=== PATIENT | male | born 1955 | race Caucasian/White ===

== ENCOUNTER → 2023-06-24 07:49 | Outpatient (REF) | payer OTHER, SELFPAY | LOC: DHCBC/DCA 07:49 | PROVIDERS: ATTENDING PHYSICIAN Internal Medicine Cardiovascular Disease; FAMILY PHYSICIAN Internal Medicine | DX: R07.9 Chest pain, unspecified (principal) | CPT/HCPCS: 78452; 93017; A9500 ==

== ENCOUNTER → 2023-06-29 14:09 | Outpatient (REF) | payer OTHER, SELFPAY | LOC: RCS 14:09 | PROVIDERS: ATTENDING PHYSICIAN Internal Medicine Cardiovascular Disease; FAMILY PHYSICIAN Internal Medicine | DX: R07.9 Chest pain, unspecified (principal) | CPT/HCPCS: 93306 ==

== ENCOUNTER → 2023-08-18 09:34 | Outpatient (REF) | payer OTHER, SELFPAY | LOC: RAD 09:34 | PROVIDERS: ATTENDING PHYSICIAN Internal Medicine Cardiovascular Disease; FAMILY PHYSICIAN Internal Medicine | DX: I10 Essential (primary) hypertension (principal); R07.9 Chest pain, unspecified | CPT/HCPCS: 75574; Q9967 ==

== ENCOUNTER 2023-11-23 21:57 | Inpatient (IN) | payer OTHER, SELFPAY ==
[2023-11-23 17:42] VITALS: BP 159/88
[2023-11-23 18:57] VITALS: BMI 24.4
[2023-11-23] MEDS: NSS 1000 IV ×2 (19:01→23:46)
[2023-11-23 19:08] VITALS: BP 162/72
[2023-11-23 19:12] LABS: % Basophils 0.2 % (0-2); % Immature Granulocytes 0.6 % (0-0.5); % Lymphocytes 6.3 % (20.5-51.1); % Monocytes 7.8 % (1.7-9.3); % Neutrophils 85.1 % (42.2-75.2); Absolute Basophils 0.1 10^3/uL (0-0.2); Absolute Immature Granulocytes 0.1 10^3/uL (0-0.05); Absolute Lymphocytes 1.4 10^3/uL (1.2-3.4); Absolute Monocytes 1.7 10^3/uL (0.1-0.6); Absolute Neutrophils 19.1 10^3/uL (1.4-6.5); Hematocrit 36.9 % (39.0-52.0); Hemoglobin 13.6 g/dL (13.0-18.0); Mean Corp Hgb Conc. 36.9 g/dL (33.0-37.0); Mean Corpuscular Hgb 30.8 pg (27.0-31.0); Mean Corpuscular Volume 83.7 fL (80.0-94.0); Mean Platelet Volume 9.4 fL (7.4-10.4); Nucleated Red Blood Cells % 0 % (-); Platelet Count 236 10^3/uL (130-400); Red Blood Cell Count 4.41 10^6/uL (4.70-6.10); Red Cell Dist. Width 12.3 % (11.5-14.5); White Blood Cell Count 22.4 10^3/uL (4.8-10.8)
[2023-11-23 19:27] LABS: ALT (SGPT) 20 U/L (0-50); AST (SGOT) 18 U/L (17-59); Albumin 4.4 g/dl (3.5-5.0); Alkaline Phosphatase 123 U/L (38-126); Blood Urea Nitrogen 26 mg/dl (9-20); Calcium 9.4 mg/dl (8.4-10.2); Carbon Dioxide 23 mmol/L (22-30); Chloride 99 mmol/L (98-107); Estimated Creatinine Clearance 45 ml/min; Glucose 147 mg/dl (70-99); Sodium 134 mmol/L (135-145); Total Bilirubin 0.7 mg/dl (0.2-1.3); Total Protein 6.9 g/dl (6.3-8.2); eGFR 46.35
[2023-11-23 19:39] LABS: Troponin I < 0.012 ng/ml
[2023-11-23 20:10] LABS: Urine Albumin Trace (Neg - Trace); Urine Bilirubin Negative (Negative); Urine Character Clear (Clear); Urine Color Yellow; Urine Glucose 3+ (Negative); Urine Ketone Negative (Negative); Urine Leukocyte Trace (Negative); Urine Nitrite Negative (Negative); Urine Occult Blood Trace (Negative); Urine Specific Gravity 1.005 (<1.030); Urine Urobilinogen Negative (Neg - 1+); Urine pH 6.5 (5.0-9.0)
[2023-11-23] MEDS: TYLENOL 1000 MG PO (20:15)
[2023-11-23 20:18] LABS: Urine Red Blood Cell 0-2 /HPF (0-2)
[2023-11-23 20:24] LABS: COVID-19 Antigen Negative (Negative)
--- NOTE | 2023-11-23 21:12 | HPS.HSE ---
Family Physician
-
Family Physician: Kranthi Chapman
Chief Complaint
-
Fever, chills, decreased urine stream, hypertension
History of Present Illness
68-year-old male from home with a 4-day history of fever, chills, urinary frequency, dysuria and difficulty with urinary stream. His states he does have history of a renal calculi but she is unsure when this was diagnosed. Patient denies any
hematuria, sediment in urine, abdominal pain, flank pain, nausea, vomiting, diarrhea, chest pain, palpitations, short breath, cough. He has past medical history hypertension, hyperlipidemia, DM 2.
Medical History
Past Medical History
Past Medical History: Reports Other
Additional Past Medical History:
hypertension
hyperlipidemia
DM 2
Past Surgical History: Reports Other
Additional Past Surgical History:
Tonsillectomy
Ureteral stricture repair as child
Social History
Tobacco: Non-smoker
Alcohol: None
Drug: None
Personal:
Living: With Family
Employment: Employed (Part-time at [employer])
Family History
Family History: Other (Mother cancer Father cardiac from/dementia)
Allergies / Home Medications
Allergies reflects when Allergies were last updated in [employer].
Home Medications with original date entered in [employer]
Allergy/Medication List:
Allergies
Allergy/AdvReac Type Severity Reaction Status Date / Time
No Known Allergies Allergy Verified 03/28/17 20:02
Home Medications
acetaminophen 500 mg tablet (Tylenol Extra Strength) 1,000 mg PO QIDPRN PRN mild pain 11/23/23
amlodipine 10 mg tablet (Norvasc) 10 mg PO DAILY 11/23/23
aspirin 81 mg tablet,delayed release 81 mg PO DAILY 11/23/23
atorvastatin 10 mg tablet (Lipitor) 10 mg PO DAILY 11/23/23
carvedilol 3.125 mg tablet (Coreg) 3.125 mg PO BID 11/23/23
dapagliflozin propanediol 10 mg tablet (Farxiga) 10 mg PO DAILY 11/23/23
glimepiride 2 mg tablet 2 mg PO DAILY 11/23/23
metformin 1,000 mg tablet 1,000 mg PO BID 11/23/23
Review of Systems
-
History Source: Patient and Family ( at bedside)
A 12 point ROS was completed and negative except as noted: Yes
Constitutional: Reports Fever and Chills
EENT: Denies Sore Throat or Runny Nose
Respiratory: Denies Cough or Trouble Breathing
Cardiac: Denies Chest Pain, Diaphoresis, Palpitations or Syncope
Abdomen/GI: Denies Abdominal Pain, Nausea, Vomiting, Diarrhea, Constipated, Bloody Stools or Black Stools
: Reports Dysuria, Frequency, Difficulty Voiding and Urgency; Denies Flank Pain, Incontinence, Bleeding, Dark Urine or Discharge
Musculoskeletal: Denies Joint Pain or Edema
Skin: Denies Itching or Rash
Neurological: Denies Dizzy, Headache or Weakness
Endocrine: Reports No Symptoms
Hematologic/Lymphatic: Reports No Symptoms
Psych: Reports Calm
Physical Exam
Vital Signs
Vital Signs
Temp Pulse Resp BP Pulse Ox
102.9 F H 111 15 159/88 97
11/23/23 17:42 11/23/23 17:42 11/23/23 17:42 11/23/23 17:42 11/23/23 19:28
Physical Exam
General: Comfortable, Conversant and Chills
HEENT: NormoCephalic, Anicteric, Moist mucous membranes, PERRLA, Pavo Conjunctivae and No Ptosis
Respiratory: Clear; No Wheezes, Rales or Rhonchi
Cardiac: S1/S2 and Tachycardia; No Murmur, Rub, Gallop or Peripheral Edema
Breast: Deferred by me
GI: Soft, Non Tender, Non Distended, Normal Bowel Sounds and No Hepatosplenomegaly
Rectal: Deferred by Provider
Genito-urinary: Deferred by me
Musculoskeletal: No Clubbing, No Cyanosis and No Edema
Skin: Warm and Dry; No Rash or Jaundice
Neuro: AO x 3, No Motor Deficits, Nonfocal/grossly intact, Cranial Nerves Intact and No Sensory Deficits; No Slurred Speech, Facial Droop, Tremors or Sedated
Psych: Calm
Laboratory Results
-
11/23/23 18:59
11/23/23 18:59
Laboratory Results
Total Bilirubin 0.7 mg/dl (0.2-1.3) 11/23/23 18:59
AST 18 U/L (17-59) 11/23/23 18:59
ALT 20 U/L (0-50) 11/23/23 18:59
Alkaline Phosphatase 123 U/L (38-126) 11/23/23 18:59
Troponin I < 0.012 ng/ml 11/23/23 18:59
Data Reviewed
-
Lab Data: Labs Reviewed by me
Impression/Plan
-
Impression/plan:
Admit to telemetry
#Sepsis 2/2 Acute prostatitis poss pyelo
Symptoms of dysuria, frequency, decreased stream, fever, chills 4 days
-WBC 22.4 with left shift, 102.9F, HR 111
COVID-negative
-Blood culture x 2, check lactic acid
UA negative, CXR negative
-IV vancomycin IV Zosyn
-IV Rocephin
-IV NSS 1 L given in ER
-Tylenol as needed fever
-Check CT abdomen pelvis
CXR: Mildly decreased bilateral lung volumes. Mild scarring subsegmental atelectasis left lower lobe no evidence of pneumonia
#CALEB multifactorial volume depletion/medication
Creat 1.6/bun 26(prior creat 1.1 in 2009)
1 L NSS given in ER continue IV NSS 100 cc an hour
-Follow BMP
-Hold metformin 1000 mg twice daily
#DM2
Accu-Cheks with SSI, check HgbA1c
-Hold metformin 1000 g twice daily due to CALEB
-HOld glimepiride 2 mg daily
#HTN�benign
BP 159/88
-Continue Coreg 3.125 mg twice daily, Norvasc 10 mg daily
2D echo 06/29/2023: EF 65 to 70% no wall abnormalities. Mild MR, mild TR
#HLD
-Continue Lipitor 10 mg daily
DVT prophylaxis
Subcu Lovenox
Full code
--- NOTE | 2023-11-23 21:35 | W.PN.UPDATE ---
Update Note
Progress Note Update
This is an addendum to the H&P written by DIONY Garcia on 11/23/2023.
68-year-old male past medical history of nephrolithiasis, urethral stricture in childhood, hypertension, diabetes, CKD 3, hyperlipidemia, presenting with weakness, fever/chills, decreased urine stream for the past 4 days.
Patient febrile, tachycardic and clearly septic. Labs show CALEB with creatinine 1.6, leukocytosis of 22. Urinalysis not highly convincing for urinary tract infection and shows 6-10 WBC, trace leukocyte esterase however history is concerning for
potential obstructive ureteral calculus. IV fluids, check blood cultures, urine culture, ceftriaxone. Check CT abdomen pelvis.
--- NOTE | 2023-11-23 21:38 | ED.GENMED ---
History of Present Illness
General
Chief Complaint: Blood Pressure Problem
Source: patient and spouse
Exam Limitations: none
Time Seen by Provider: 11/23/23 18:18
Nursing documentation reviewed up to this point in time: agreed with
History of Present Illness
History of Present Illness:
Patient to ED with complaint of fever/chill, x 2-3 days. Elevated BP and HR at home Taking tylenol with temporary improvement of fever. Report intermittent chest pain. NO cough or difficulty breathig. Reports urinary frequency, denies back or
abdominal pain. No n/v/d. Spouse states he appears weak to her. Not eating or drinking. Brought to ED by spouse for eval
Past History
Past History
ED Past Medical History: HTN, NIDDM and Other (Hypertension )
ED Past Surgical History: None
Social History
Tobacco: Non-smoker
Alcohol: None
Family History
Family History: Other (Mother with colon cancer )
Review of Systems
Review of Systems
Allergies reviewed?: Yes
All Other Systems: ROS reviewed and negative except as documented in HPI and ROS
Constitutional: Reports fever, fatigue and chills
EENT: Reports no symptoms
Respiratory: Reports no symptoms
Cardiac: Reports chest pain
ABD/GI: Reports no symptoms
: Reports frequency
Musculoskeletal: Reports no symptoms
Skin: Reports no symptoms
Neurological: Reports weakness
Psychiatric: Reports no symptoms
Phy Exam
General Physical Exam
General Presentation: mild distress
General age: appears stated age
General Skin: warm and dry
General Habitus: normal
General Mental: alert
Cardiovascular Exam
Cardiovascular Exam: regular rate/rhythm and no edema
Pulmonary Exam
Pulmonary Exam: lungs clear and no respiratory distress
Gastrointestinal Exam
Gastrointestinal Exam: normal bowel sounds, non tender, soft, no organomegaly, non distended and no cva tenderness
Musculoskeletal Exam
Musculoskeletal Exam: full ROM and neuro vasc intact
Skin Exam
Skin Exam: normal color, warm/dry and no rash
Psychiatric Exam
Psychiatric Exam: normal mood/affect
Course
Orders/Labs/Results
Orders:
Orders
11/23/23 17:41
EKG [Electrocardiogram (*1)] Urgent
Reason for Study: Tachycardia
EKG- Treatment ONCE
11/23/23 18:29
CR Chest - 2 Views Urgent
Comment:
Reason For Exam: fever, chest pain
11/23/23 18:30
0.9% Sodium Chloride 1000 ml [Nss] 1,000 ml IV BOLUS
11/23/23 18:59
Complete Blood Count/With Diff Urgent
Comprehensive Metabolic Panel Urgent
Troponin I Urgent
Blood Culture Q30M
MADDISON Source: Blood/Venous
Specimen Description:
Blood Culture Q30M
MADDISON Source: Blood/Venous
Specimen Description:
11/23/23 19:44
Acetaminophen [Tylenol] 1,000 mg PO NOW STA
11/23/23 19:59
COVID-19 Antigen Urgent
Source: Nasal Swab
Urinalysis Reflex To Culture Urgent
Date Specimen was Collected: 11/23/23
Time Specimen was Collected: 19:08
Urine Microscopic Reflex Cult Urgent
Influenza A+B Rapid Molecular Urgent
MADDISON Source: Nasal Swab
Specimen Description:
11/23/23 21:00
Piperacillin/Tazo 4.5 Gram [Zosyn] 4.5 gram in 100 ml IV NOW
Vancomycin [Vancocin] 1,500 mg 0.9% Sodium Chloride [Nss] 20 ml 0.9% Sodium Chloride 250 ml [Nss] 250 ml IV NOW
11/23/23 21:32
Abdomen/Pelvis wo Contrast CT [CT Abd/pelvis Wo Iv Cont] Urgent
Comment:
Reason For Exam: sepsis concern for obst renal calculi
11/23/23 21:34
Admit/Transfer Patient As Directed
Co-Sign Provider:
Level of Care: Inpatient admission
Assign to:: Telemetry
Physician / Group: andrews nunez
Diagnosis: sepsis likely 2/2 to renal calculi
Reason for Telemetry: Arrhythmia
Date to Stop Telemetry: 11/26/23
Time to Stop Telemetry: 11:00
Reason for Hospitalization: sepsis likely 2/2 to renal calculi
Expected length of stay greater than two midnights?: Yes
ELOS- Estimated Length of Stay in days: 5
I certify the patient meets the requirements for IP care: Yes
Code Status As Directed
Resuscitation Status: Full Code
11/23/23 21:45
0.9% Sodium Chloride 1000 ml [Nss] 1,000 ml IV 100 mls/hr
11/23/23 23:06
Acetaminophen [Tylenol] 650 mg PO Q4HPRN PRN
Dextrose 50%-Water [Dextrose 50% Syringe] 12.5 grams IV [id number] PRN
Glucagon [GlucaGen] 1 mg IM PRN PRN
11/23/23 23:06
Activity As Directed
Activity Level: As Tolerated
Bedside Glucose Monitoring As Directed
Frequency: AC&HS
Additional Instructions:: Change to q6h if pt on TPN, tube feeding or not eating
Intake/ Output As Directed
Frequency: Per unit guidelines
Vital Signs As Directed
Frequency: Per unit guidelines
Ot Eval And Treat Routine
Pt Eval And Treat Routine
Activity Level: As Tolerated
DX Deep Vein Thrombosis Video Routine
11/24/23 06:00
Complete Blood Count/With Diff IN AM
Comprehensive Metabolic Panel IN AM
Glycohemoglobin (HgbA1c) IN AM
11/24/23 07:30
Insulin Aspart Corrective Low [Novolog Flexpen-Low Resistance] See Protocol SC AC
11/24/23 08:00
Amlodipine [Norvasc] 10 mg PO DAILY
Aspirin Low Dose EC [Aspir Low (Enteric Coated)] 81 mg PO DAILY
Atorvastatin [Lipitor] 10 mg PO DAILY
Carvedilol [Coreg] 3.125 mg PO BID
11/24/23 18:00
Enoxaparin Sodium [Lovenox] 40 mg SC QPM
11/25/23 06:00
Complete Blood Count/With Diff IN AM
Comprehensive Metabolic Panel IN AM
11/26/23 06:00
Complete Blood Count/With Diff IN AM
Comprehensive Metabolic Panel IN AM
11/26/23 11:00
DC Protocol for Telemetry ONCE
Abnormal Lab Results
11/23/23 11/23/23
18:59 19:59
WBC 22.4 H 10^3/uL
(4.8-10.8)
RBC 4.41 L 10^6/uL
(4.70-6.10)
Hct 36.9 L %
(39.0-52.0)
Abs Immat Gran (auto) 0.1 H 10^3/uL
(0-0.05)
Absolute Neuts (auto) 19.1 H 10^3/uL
(1.4-6.5)
Absolute Monos (auto) 1.7 H 10^3/uL
(0.1-0.6)
Immature Gran % 0.6 H %
(0-0.5)
Neutrophils % 85.1 H %
(42.2-75.2)
Lymphocytes % 6.3 L %
(20.5-51.1)
Sodium 134 L mmol/L
(135-145)
BUN 26 H mg/dl
(9-20)
Creatinine 1.6 H mg/dL
(0.7-1.3)
Glucose 147 H mg/dl
(70-99)
Ur Occult Blood Reflex Trace A
(Negative)
Leukocyte Esterase Rfl Trace A
(Negative)
Urine Glucose 3+ A
(Negative)
11/23/23 18:59
11/23/23 18:59
Vital Signs
Initial and Last Documented VS:
Initial Vital Signs
Temp Pulse Resp BP Pulse Ox
102.9 F H 111 15 159/88 95
11/23/23 17:42 11/23/23 17:42 11/23/23 17:42 11/23/23 17:42 11/23/23 17:42
Last Documented Vital Signs
Temp Pulse Resp BP Pulse Ox
102.9 F H 81 18 125/70 92
11/23/23 17:42 11/23/23 22:30 11/23/23 22:30 11/23/23 22:29 11/23/23 22:30
*Radiology
Radiology exam reviewed: radiology read reviewed
*Pulse Oximetry
Patient hypoxic: no
*Critical Care Note
Total Time (30-74mins, 75-104mins- exclusive of procedures): Not Applicable
Update Note
Update Note:
Patien to ED with complaint of fever/chills, fatigue x 2 days. Increasing weakness. Labs reviewed. WBC 22.4. Blood cultures pending GIven IVF, tylenol, antibiotics started. Discussed findings and plan with patient. He is agreeable to
admission. He then reports at one time he was told he had a small kidney stone. Denies any issues wtih stones in the past. UA with trace blood, trace leukocytes creat 1.6. WIll CT to r/o hydro, obstruction
ED Attending Note
-
Portions of this chart may have been created with voice recognition software.� Occasional wrong word or��sound alike� substitutions may have occurred due to the inherent limitations of voice recognition software.
Discharge Plan
Departure
Patient Disposition: Admit
Date of Disposition: 11/23/23
Time of Disposition: 21:00
Presentation/result/management discussed w/ accepting MD/DO: Hospitalist
Patient with high blood pressure during this ER visit?: No
Condition: Fair
Covid-19: Not Applicable
Discharge Problem:
Sepsis
Interventions
Interventions:
*Risk Screen - Suicide Last Done: 11/23/23 17:42
*General Assessment Last Done: 11/23/23 17:42
*Neglect/Abuse Screening Last Done: 11/23/23 17:42
*ED COVID-19 Vaccine History Last Done: 11/23/23 18:57
*Nursing Disposition Last Done: 11/23/23 23:07
ED- Cardiac Assessment Last Done: 11/23/23 19:28
ED- Neurological Assessment Last Done: 11/23/23 19:28
ED- Pulmonary Assessment Last Done: 11/23/23 19:28
Discharge Date and Time
Discharge Date/Time: 11/23/23 23:08
[2023-11-23] MEDS: ZOSYN 100 IV (22:22)
[2023-11-23 22:29] VITALS: BP 125/70
[2023-11-23 23:20] LABS: Glucose - Point of Care 217 mg/dl (70-99)
[2023-11-23 23:21] VITALS: BP 124/63; BMI 24.3
[2023-11-23] MEDS: STERILE WATER FOR INJECTION 10 ML IV (23:51)
[2023-11-23] MEDS: ROCEPHIN 1000 MG IV (23:51)
[2023-11-24] VITALS (8 sets, daily range): BP systolic 122–146; BP diastolic 61–71; PULSE 78–80; O2SAT 94
--- NOTE | 2023-11-24 00:56 | PTCARENOTE ---
Patient arrived from ED, was able to walk independently to bathroom to void. Denies pain, remains on RA. Afebrile at this time.
[2023-11-24 08:03] LABS: Glucose - Point of Care 141 mg/dl (70-99)
[2023-11-24] MEDS: NOVOLOG FLEXPEN-LOW RESISTANCE SC ×2 (08:19→17:44)
[2023-11-24 08:26] LABS: % Basophils 0.2 % (0-2); % Eosinophils 0.1 % (0-6); % Immature Granulocytes 0.5 % (0-0.5); % Lymphocytes 7.6 % (20.5-51.1); % Neutrophils 83.6 % (42.2-75.2); Absolute Immature Granulocytes 0.1 10^3/uL (0-0.05); Absolute Lymphocytes 1.5 10^3/uL (1.2-3.4); Absolute Monocytes 1.6 10^3/uL (0.1-0.6); Hematocrit 35.1 % (39.0-52.0); Hemoglobin 12.6 g/dL (13.0-18.0); Mean Corp Hgb Conc. 35.9 g/dL (33.0-37.0); Mean Corpuscular Hgb 30.4 pg (27.0-31.0); Mean Corpuscular Volume 84.6 fL (80.0-94.0); Nucleated Red Blood Cells % 0 % (-); Platelet Count 246 10^3/uL (130-400); Red Blood Cell Count 4.15 10^6/uL (4.70-6.10); Red Cell Dist. Width 12.4 % (11.5-14.5); White Blood Cell Count 20.4 10^3/uL (4.8-10.8)
[2023-11-24] MEDS: NSS 1000 IV ×2 (08:27→20:05)
[2023-11-24] MEDS: COREG 3.125 MG PO ×2 (08:27→20:04)
[2023-11-24] MEDS: ASPIR LOW (ENTERIC COATED) 81 MG PO (08:27)
[2023-11-24] MEDS: NORVASC 10 MG PO (08:28)
[2023-11-24] MEDS: LIPITOR 10 MG PO (08:28)
[2023-11-24 08:54] LABS: ALT (SGPT) 16 U/L (0-50); AST (SGOT) 19 U/L (17-59); Albumin 3.6 g/dl (3.5-5.0); Alkaline Phosphatase 120 U/L (38-126); Blood Urea Nitrogen 22 mg/dl (9-20); Calcium 8.8 mg/dl (8.4-10.2); Carbon Dioxide 22 mmol/L (22-30); Chloride 105 mmol/L (98-107); Estimated Creatinine Clearance 48 ml/min; Glucose 135 mg/dl (70-99); Sodium 138 mmol/L (135-145); Total Bilirubin 0.7 mg/dl (0.2-1.3); eGFR 50.08
[2023-11-24 11:09] LABS: Glycohemoglobin (HgbA1c) 7.1 % (4.0-5.6)
[2023-11-24 11:41] LABS: Glucose - Point of Care 267 mg/dl (70-99)
--- NOTE | 2023-11-24 12:10 | W.PN.HOSP.TC ---
Today's Communication/Plan
-
Antibiotics for acute prostatitis
Do not do any catheterization or any urinary catheters unless you ask urologist first
Assessment / Plan
Assessment / Plan
Physical Exam
General: Not in acute distress
HEENT: Normocephalic
Respiratory: Clear to Auscultation Bilaterally
Cardiac: S1/S2 and RRR
GI: Soft, Non Tender, Non Distended, Normal Bowel Sounds
Musculoskeletal: No Cyanosis and No Edema
Skin: Warm and Dry
Neuro: AAO x 3, Nonfocal/grossly intact, Cranial Nerves Intact and No Sensory Deficits
Psych: Calm

CT Abd/pelvis Wo Iv Cont, as per radiologist's report
IMPRESSION:
1. Severely enlarged prostate gland with mild surrounding fat stranding suggesting benign prostatic hyperplasia (BPH) and acute prostatitis.
2. Mild diffuse urinary bladder wall thickening which could be secondary to acute cystitis or chronic urinary bladder outlet obstruction.
3. Mild to moderate chronic bilateral renal disease and small hemorrhagic cysts in both kidneys. Moderate perinephric fat stranding around the kidneys which could be secondary to chronic renal disease or acute pyelonephritis. No CT evidence for
ureteral calculus or hydroureteronephrosis.
4. Moderate amount of fecal material throughout the colon suggesting constipation.
5. Small hiatal hernia.
6. 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

Assessment/Plan
#Sepsis Secondary to Acute prostatitis and Possible Pyelonephritis
#Severely Enlarged prostate
#Fever
#Leukocytosis
-CT Abdomen Pelvis results as above
-Status post Vancomycin, Zosyn and Rocephin
-Now on Ciprofloxacin for acute prostatitis and possible pyelonephritis
-Follow urine culture
-Follow blood cultures
-Urology consulted, recommendations appreciated
#CALEB Likely Secondary Obstruction with Severely Enlarged Prostate, and sepsis
-Follow BMP
-Hold metformin 1000 mg twice daily
#Type 2 Diabetes Mellitus
Accu-Cheks with SSI, check HgbA1c
-Hold metformin 1000 g twice daily due to CALEB
-HOld glimepiride 2 mg daily
#HTN�benign
BP 159/88
-Continue Coreg 3.125 mg twice daily, Norvasc 10 mg daily
2D echo 06/29/2023: EF 65 to 70% no wall abnormalities. Mild MR, mild TR
#HLD
-Continue Lipitor 10 mg daily
DVT prophylaxis
Subcu Lovenox
Full code
Anticipated Discharge: > 48 hours
Subjective/Interval History
-
Date of Service: November 24, 2023
Patient was seen and examined. He reported ongoing urinary hesitancy and dribbling. No other new significant symptoms or complaints.
Objective Data
-
Labs:
Laboratory Results
11/24/23
07:54
WBC 20.4 H
Hgb 12.6 L
Hct 35.1 L
Plt Count 246
Sodium 138
Potassium 4.0
Chloride 105
Carbon Dioxide 22
BUN 22 H
Creatinine 1.5 H
Glucose 135 H
Calcium 8.8
Total Bilirubin 0.7
AST 19
ALT 16
Alkaline Phosphatase 120
Vital Signs:
Vital Signs
Temp Pulse Resp BP Pulse Ox
99.7 F 81 18 122/64 98
11/24/23 11:04 11/24/23 11:04 11/24/23 11:04 11/24/23 11:04 11/24/23 11:04
I&O
11/23/23 11/24/23 11/25/23
06:59 06:59 06:59
Intake Total 480 / 480
Balance 480 / 480
[2023-11-24] MEDS: FLOMAX 0.400000000000000022 MG PO (12:49)
--- NOTE | 2023-11-24 12:59 | CM ---
Patient seen with , initial assessment completed. Patient resides with in single story home, one step to enter. Patient is independent, denies use of DME, VN, or SNF history. Patient confirms PCP Kranthi Chapman, pharmacy [facility],
confirms prescription coverage. Patient denies housing/utility, food, or transportation insecurities. CM will continue to follow for all discharge planning needs.
Plan; home no needs likely.
[2023-11-24] MEDS: NOVOLOG FLEXPEN-LOW RESISTANCE 3 UNITS SC (13:16)
[2023-11-24] MEDS: FLUSH (NSS) 1 FLUSH IV (13:46)
[2023-11-24] MEDS: CIPRO 400 MG 200 IV (13:46)
[2023-11-24 16:42] LABS: Glucose - Point of Care 142 mg/dl (70-99)
--- NOTE | 2023-11-24 16:52 | PTCARENOTE ---
Pt AAO x3, Bhumi, ambulatory in room/to BR; noam well. VSS. Telemetry:NSR. On room air- pulse ox 97%. Abd soft, rounded, noam PO well. Voids frequently- small/mod amts clear yellow urine; pt c/o urgency/frequency; denies discomfort. IVF's NSS
@ 100 ml/hr infusing via Rt AC site without sx of infiltration. Resting in bed at present. Will continue to monitor.
[2023-11-24] MEDS: TYLENOL 650 MG PO (16:58)
[2023-11-24] MEDS: LOVENOX 40 MG SC (17:43)
[2023-11-24 21:48] LABS: Glucose - Point of Care 147 mg/dl (70-99)
--- NOTE | 2023-11-24 23:00 | CONS.URO ---
Consultation
-
Performing Provider: Felix
Reason for Consultation: Prostatitis
Medical History
History of Present Illness
68M admitted with 4-day history of fever, chills, urinary frequency, dysuria and difficulty voiding
Prior urologic history of stones and repair of a urethral stricture as a child
Patient denies any hematuria. Denies abdominal pain, flank pain, nausea, vomiting
At baseline he does not have significant BPH symptoms and has not had any episodes of prostatitis/UTI in the past
No prior episodes of urinary retention or gross hematuria
He was admitted with sepsis and started on broad spectum abx
CT scan showed enlarged prostate and cystitis/prostatitis
Past Medical History
Past Medical History: Other (ypertension, hyperlipidemia, DM 2)
Allergies/Home Medications
Allergies
Allergy/AdvReac Type Severity Reaction Status Date / Time
No Known Allergies Allergy Verified 03/28/17 20:02
Home Medications
�Medication �Instructions �Recorded �Confirmed �Type
acetaminophen 500 mg tablet 1,000 mg PO QIDPRN PRN mild pain 11/23/23 11/23/23 History
(Tylenol Extra Strength)
amlodipine 10 mg tablet (Norvasc) 10 mg PO DAILY Blood Pressure 11/23/23 11/23/23 History
aspirin 81 mg tablet,delayed 81 mg PO DAILY Blood Clot 11/23/23 11/23/23 History
release Prevention/Tx
atorvastatin 10 mg tablet (Lipitor) 10 mg PO DAILY High Cholesterol 11/23/23 11/23/23 History
carvedilol 3.125 mg tablet (Coreg) 3.125 mg PO BID Blood Pressure 11/23/23 11/23/23 History
dapagliflozin propanediol 10 mg 10 mg PO DAILY Diabetes 11/23/23 11/23/23 History
tablet (Farxiga)
glimepiride 2 mg tablet 2 mg PO DAILY Diabetes 11/23/23 11/23/23 History
metformin 1,000 mg tablet 1,000 mg PO BID Diabetes 11/23/23 11/23/23 History
Physical Exam
Vital Signs
Vital Signs
Temp Pulse Resp BP Pulse Ox
98.9 F 81 18 124/66 95
11/24/23 19:45 11/24/23 19:45 11/24/23 19:45 11/24/23 19:45 11/24/23 19:45
Lab / Testing Results
Laboratory Results
11/24/23 07:54
11/24/23 07:54
Assessment / Plan
-
Prostatitis
- Symptoms c/w acute prostatitis. Suspect this is dx despite relatively benign urinalysis
- Urine specimen from admission sent for culture
- Continue IV abx pending cultures - even if no growth would recommend continuing fluoroquinolone empirically for 14 day total course
- Mild urinary retention - 140cc PVR on 11/23. Would avoid lazo given possible hx of urethral stricture repaired in childhood. Patient reports steadily improving ability to void.
- Start tamsulosin 0.4mg daily and continue at discharge
BPH
- severely enlarged prostate, 100cc volume on CT, likely risk factor for prostatitis
- Minimal baseline BPH symptoms - will review again at follow up
Complex renal cysts
- Atypical appearance of larger R renal cyst - likely hyperdense/hemorrhagic cyst but cannot rule out solid mass on noncontrast CT
- Will discuss this further at follow up for additional diagnostic imaging
Data Reviewed
-
CT Scan: Image personally visualized and interpreted
Lab Data: Labs Reviewed
[2023-11-25] MEDS: STERILE WATER FOR INJECTION IV ×2 (00:50→23:12)
[2023-11-25] MEDS: CIPRO 400 MG 200 IV ×2 (01:18→13:51)
[2023-11-25] MEDS: TYLENOL 650 MG PO ×3 (01:22→21:18)
[2023-11-25 03:00] VITALS: BP 133/61
[2023-11-25 07:20] LABS: Glucose - Point of Care 141 mg/dl (70-99)
[2023-11-25 07:34] VITALS: BP 144/70
[2023-11-25 07:34] LABS: % Basophils 0.2 % (0-2); % Eosinophils 0.5 % (0-6); % Immature Granulocytes 0.5 % (0-0.5); % Lymphocytes 9.8 % (20.5-51.1); % Monocytes 8.8 % (1.7-9.3); % Neutrophils 80.2 % (42.2-75.2); Absolute Eosinophils 0.1 10^3/uL (0-0.7); Absolute Immature Granulocytes 0.1 10^3/uL (0-0.05); Absolute Lymphocytes 1.7 10^3/uL (1.2-3.4); Absolute Monocytes 1.5 10^3/uL (0.1-0.6); Absolute Neutrophils 13.7 10^3/uL (1.4-6.5); Hematocrit 34.8 % (39.0-52.0); Hemoglobin 12.5 g/dL (13.0-18.0); Mean Corp Hgb Conc. 35.9 g/dL (33.0-37.0); Mean Corpuscular Hgb 30.3 pg (27.0-31.0); Mean Corpuscular Volume 84.5 fL (80.0-94.0); Mean Platelet Volume 9.7 fL (7.4-10.4); Nucleated Red Blood Cells % 0 % (-); Platelet Count 248 10^3/uL (130-400); Red Blood Cell Count 4.12 10^6/uL (4.70-6.10); Red Cell Dist. Width 12.2 % (11.5-14.5); White Blood Cell Count 17.1 10^3/uL (4.8-10.8)
[2023-11-25] MEDS: NOVOLOG FLEXPEN-LOW RESISTANCE SC (07:41)
--- NOTE | 2023-11-25 07:47 | W.PN.URO.CBU ---
Today's Communication / Plan
-
continue antibx and flomax
Assessment / Plan
-
UTI
pt slowly improving
voiding- no need for lazo (it sounds as if his intervention was a dilation- but if lazo required urology should place)
continue antibx- await ucx
eventually would d/c with 2 week course of oral therapy and flomax with outpt follow up with dr winston
Diagnosis
-
Date of Service: November 25, 2023
-
Patient Diagnosis:
UTI/prostatitis
hx of urethral 'stx'- and dilation
Subjective
-
pt feels better
stream improving
no hematuria
wbc declining- one low grade temp
Objective
-
Vital Signs
Temp Pulse Resp BP Pulse Ox
98.2 F 89 16 133/61 96
11/25/23 03:30 11/25/23 03:00 11/25/23 03:00 11/25/23 03:00 11/25/23 03:00
Intake and Output
11/24/23 11/25/23 11/26/23
06:59 06:59 06:59
Intake Total 1280 / 1280 4580 / 4580
Output Total 2250 / 2250
Balance 1280 / 1280 2330 / 2330
Intake:
Oral fluids 480 / 480 1880 / 1880
IV fluids (Total) 800 / 800 2300 / 2300
IV piggybacks 400 / 400
Output:
Urine, Voided 2250 / 2250
Other:
Number of approximated SMALL 6
amounts of urine
Number of approximated MODERATE 2 3
amounts of urine
Laboratory Results
11/25/23 07:12
Review of Systems
-
Constitutional: Fatigue
Respiratory: No Symptoms
Cardiac: No Symptoms
Abdomen/GI: No Symptoms
Physical Exam
-
General - no acute distress
[2023-11-25 08:11] LABS: ALT (SGPT) 18 U/L (0-50); AST (SGOT) 19 U/L (17-59); Albumin 3.5 g/dl (3.5-5.0); Alkaline Phosphatase 115 U/L (38-126); Blood Urea Nitrogen 22 mg/dl (9-20); Carbon Dioxide 21 mmol/L (22-30); Chloride 105 mmol/L (98-107); Estimated Creatinine Clearance 51 ml/min; Glucose 127 mg/dl (70-99); Sodium 137 mmol/L (135-145); Total Bilirubin 0.8 mg/dl (0.2-1.3); Total Protein 5.8 g/dl (6.3-8.2); eGFR 54.41
[2023-11-25] MEDS: FLOMAX 0.400000000000000022 MG PO (08:30)
[2023-11-25] MEDS: ASPIR LOW (ENTERIC COATED) 81 MG PO (08:30)
[2023-11-25] MEDS: LIPITOR 10 MG PO (08:30)
[2023-11-25] MEDS: NSS 1000 IV (08:30)
[2023-11-25] MEDS: COREG 3.125 MG PO ×2 (08:30→21:02)
[2023-11-25] MEDS: NORVASC 10 MG PO (08:35)
[2023-11-25 11:40] LABS: Glucose - Point of Care 284 mg/dl (70-99)
[2023-11-25 11:47] VITALS: BP 117/63
[2023-11-25] MEDS: NOVOLOG FLEXPEN-LOW RESISTANCE 3 UNITS SC ×2 (12:04→17:27)
[2023-11-25] MEDS: SENOKOT-S 1 TABLET PO ×2 (13:51→21:14)
[2023-11-25] MEDS: MIRALAX 17 GRAMS PO (13:51)
--- NOTE | 2023-11-25 15:14 | W.PN.HOSP.TC ---
Today's Communication/Plan
-
Continue antibiotics and Flomax
Appreciate Urology and Infectious Disease
Assessment / Plan
Assessment / Plan
Physical Exam
General: Not in acute distress
HEENT: Normocephalic
Respiratory: Clear to Auscultation Bilaterally
Cardiac: S1/S2 and RRR
GI: Soft, Non Tender, Non Distended, Normal Bowel Sounds
Musculoskeletal: No Cyanosis and No Edema
Skin: Warm and Dry
Neuro: AAO x 3, Nonfocal/grossly intact, Cranial Nerves Intact and No Sensory Deficits
Psych: Calm

CT Abd/pelvis Wo Iv Cont, as per radiologist's report
IMPRESSION:
1. Severely enlarged prostate gland with mild surrounding fat stranding suggesting benign prostatic hyperplasia (BPH) and acute prostatitis.
2. Mild diffuse urinary bladder wall thickening which could be secondary to acute cystitis or chronic urinary bladder outlet obstruction.
3. Mild to moderate chronic bilateral renal disease and small hemorrhagic cysts in both kidneys. Moderate perinephric fat stranding around the kidneys which could be secondary to chronic renal disease or acute pyelonephritis. No CT evidence for
ureteral calculus or hydroureteronephrosis.
4. Moderate amount of fecal material throughout the colon suggesting constipation.
5. Small hiatal hernia.
6. 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

Assessment/Plan
#Sepsis Secondary to Acute prostatitis and Possible Pyelonephritis
#Severely Enlarged prostate
#Fever
#Leukocytosis
-CT Abdomen Pelvis results as above
-Status post Vancomycin, Zosyn and Rocephin
-Now on Ciprofloxacin for acute prostatitis and possible pyelonephritis - continue Ciprofloxacin
-Follow urine culture - growing 60k cfu CoNS bacteria
-Follow blood cultures
-Urology consulted, recommendations appreciated
-Continue Flomax
-Infectious Disease consulted, recommendations appreciated
#CALEB Likely Secondary Obstruction with Severely Enlarged Prostate, and sepsis
-Follow BMP --> Creatinine gradually improving
-Hold metformin 1000 mg twice daily
#Constipation
-Ordered bowel regimen
#Type 2 Diabetes Mellitus
Accu-Cheks with SSI, check HgbA1c
-Hold metformin 1000 g twice daily due to CALEB
-HOld glimepiride 2 mg daily
#HTN�benign
BP 159/88
-Continue Coreg 3.125 mg twice daily, Norvasc 10 mg daily
2D echo 06/29/2023: EF 65 to 70% no wall abnormalities. Mild MR, mild TR
#HLD
-Continue Lipitor 10 mg daily
DVT prophylaxis
Subcu Lovenox
Full code
Anticipated Discharge: 24 - 48 hours
Subjective/Interval History
-
Date of Service: November 25, 2023
Patient was seen and examined. He denied any new significant symptoms or complaints. He is urinating better now.
Objective Data
-
Labs:
Laboratory Results
11/25/23
07:12
WBC 17.1 H
Hgb 12.5 L
Hct 34.8 L
Plt Count 248
Sodium 137
Potassium 4.0
Chloride 105
Carbon Dioxide 21 L
BUN 22 H
Creatinine 1.4 H
Glucose 127 H
Calcium 9.0
Total Bilirubin 0.8
AST 19
ALT 18
Alkaline Phosphatase 115
Vital Signs:
Vital Signs
Temp Pulse Resp BP Pulse Ox
98.3 F 71 16 117/63 96
11/25/23 11:47 11/25/23 11:47 11/25/23 11:47 11/25/23 11:47 11/25/23 11:59
I&O
11/24/23 11/25/23 11/26/23
06:59 06:59 06:59
Intake Total 1280 / 1280 4580 / 4580
Output Total 2250 / 2250
Balance 1280 / 1280 2330 / 2330
[2023-11-25 15:42] VITALS: BP 156/76
[2023-11-25 16:45] LABS: Glucose - Point of Care 290 mg/dl (70-99)
[2023-11-25] MEDS: NSS IV (17:24)
[2023-11-25] MEDS: LOVENOX 40 MG SC (17:27)
[2023-11-25 19:36] VITALS: BP 154/80
[2023-11-25 21:24] LABS: Glucose - Point of Care 243 mg/dl (70-99)
[2023-11-25 23:45] VITALS: BP 130/69
[2023-11-26] MEDS: NSS 1000 IV (00:30)
[2023-11-26 03:00] VITALS: BP 115/80
[2023-11-26] MEDS: CIPRO 400 MG 200 IV ×2 (03:06→13:54)
[2023-11-26 04:07] LABS: % Basophils 0.4 % (0-2); % Eosinophils 0.6 % (0-6); % Immature Granulocytes 0.7 % (0-0.5); % Lymphocytes 10.5 % (20.5-51.1); % Monocytes 9.5 % (1.7-9.3); % Neutrophils 78.3 % (42.2-75.2); Absolute Basophils 0.1 10^3/uL (0-0.2); Absolute Eosinophils 0.1 10^3/uL (0-0.7); Absolute Immature Granulocytes 0.1 10^3/uL (0-0.05); Absolute Lymphocytes 1.9 10^3/uL (1.2-3.4); Absolute Monocytes 1.7 10^3/uL (0.1-0.6); Absolute Neutrophils 14.2 10^3/uL (1.4-6.5); Hematocrit 36.4 % (39.0-52.0); Hemoglobin 12.5 g/dL (13.0-18.0); Mean Corp Hgb Conc. 34.3 g/dL (33.0-37.0); Mean Corpuscular Volume 87.3 fL (80.0-94.0); Mean Platelet Volume 9.4 fL (7.4-10.4); Nucleated Red Blood Cells % 0 % (-); Platelet Count 268 10^3/uL (130-400); Red Blood Cell Count 4.17 10^6/uL (4.70-6.10); Red Cell Dist. Width 12.1 % (11.5-14.5); White Blood Cell Count 18.1 10^3/uL (4.8-10.8)
[2023-11-26 04:22] LABS: ALT (SGPT) 47 U/L (0-50); AST (SGOT) 42 U/L (17-59); Albumin 3.7 g/dl (3.5-5.0); Alkaline Phosphatase 138 U/L (38-126); Blood Urea Nitrogen 24 mg/dl (9-20); Carbon Dioxide 23 mmol/L (22-30); Chloride 104 mmol/L (98-107); Estimated Creatinine Clearance 45 ml/min; Glucose 171 mg/dl (70-99); Potassium 4.4 mmol/L (3.5-5.1); Sodium 136 mmol/L (135-145); Total Bilirubin 0.7 mg/dl (0.2-1.3); Total Protein 6.2 g/dl (6.3-8.2); eGFR 46.35
[2023-11-26 07:54] VITALS: BP 150/75
[2023-11-26 07:58] LABS: Glucose - Point of Care 183 mg/dl (70-99)
[2023-11-26] MEDS: COREG 3.125 MG PO (08:21)
[2023-11-26] MEDS: ASPIR LOW (ENTERIC COATED) 81 MG PO (08:21)
[2023-11-26] MEDS: NORVASC 10 MG PO (08:22)
[2023-11-26] MEDS: LIPITOR 10 MG PO (08:22)
[2023-11-26] MEDS: NOVOLOG FLEXPEN-LOW RESISTANCE 1 UNITS SC (08:22)
[2023-11-26] MEDS: FLOMAX 0.800000000000000044 MG PO (08:22)
[2023-11-26] MEDS: MIRALAX 17 GRAMS PO (08:23)
[2023-11-26] MEDS: SENOKOT-S 1 TABLET PO (08:25)
[2023-11-26 11:25] VITALS: BP 154/68
--- NOTE | 2023-11-26 12:09 | CON.ID ---
Addendum entered and electronically signed by Nanette Shafer MD 11/26/23 12:29:
PE:
additionally: no suprapubic or CVA tenderness
Original Note:
Consultation
-
Date/Time Consultation Requested: 11/25/23 15:19
Date/Time Consultation Performed: 11/26/23 12:10
Requesting Provider: Dr Eller
Performing Provider: Dr Shafer
Reason for Consultation: Acute Prostatitis, Severe BPH, CoNS growing in urine
Chief Complaint / Past History
Chief Complaint
Fever, chills, decreased urine stream, hypertension
History of Present Illness
Mr Echavarria is a 68 year old male with history of ureteral stricture repair as child, renal stones, who presented here on 11/22 for a 4-day history of fever, chills, urinary frequency, dysuria and difficulty with urinary stream. No: hematuria, sediment
in urine, abdominal pain, flank pain, nausea, vomiting, diarrhea, chest pain, palpitations, short breath, cough
Since arrival here Tmax 102.9 orally on arrival fevers have subsequently resolved, bp stable, HR normal, wbc on arrival 22 now 18, hgb 12.5, plt 268, L shift improving, eoss are reappearing, cr 1.6 which is his baseline, UA: minimal pyuria, covid ag
neg, 11/22 CT a/p w/o contrast: prostatitis, chronic urinary bladder outlet obstruction, possible pyelo, constipation, on a bowel regimen, cxr: atelectasis, urine culture 60K s epi, levaquin sensitive, qtc: 456, blood cultures 11/22 no growth at 48
hours, on floxmax,
Past History
Additional Past Medical History:
hypertension
hyperlipidemia
DM 2
Additional Past Surgical History:
Tonsillectomy
Ureteral stricture repair as child
Allergy History:
No Known Allergies Allergy (Verified 03/28/17 20:02)
Medications Reviewed: Yes
Social History
Tobacco: Non-Smoker
Alcohol: None
Drug: None
Family History
Family History: Not Pertinent
Review of Systems
Review of Systems
General: Fever and Chills
All systems: All other systems were reviewed and were negative
Vital Signs
Temp Pulse Resp BP Pulse Ox
98.5 F 75 22 150/75 92
11/26/23 07:54 11/26/23 08:22 11/26/23 07:54 11/26/23 08:22 11/26/23 07:54
Physical Exam
Physical Exam
Constitutional: No Acute Distress
Cardiovascular: Regular Rate and S1/S2; Negative Murmur or Rub
Pulmonary: Clear and Symmetric; Negative Wheezes, Rales or Rhonchi
Gastrointestinal: Soft, Non Tender, Non Distended and Normal Bowel Sounds
Skin: Warm and Dry; Negative Rash or Jaundice
Lab / Diagnostic Study Results
11/26/23 03:54
11/26/23 03:54
Abs Immat Gran (auto) 0.1 10^3/uL (0-0.05) H 11/26/23 03:54
Absolute Neuts (auto) 14.2 10^3/uL (1.4-6.5) H 11/26/23 03:54
Absolute Lymphs (auto) 1.9 10^3/uL (1.2-3.4) 11/26/23 03:54
Absolute Monos (auto) 1.7 10^3/uL (0.1-0.6) H 11/26/23 03:54
Absolute Basos (auto) 0.1 10^3/uL (0-0.2) 11/26/23 03:54
Immature Gran % 0.7 % (0-0.5) H 11/26/23 03:54
Neutrophils % 78.3 % (42.2-75.2) H 11/26/23 03:54
Lymphocytes % 10.5 % (20.5-51.1) L 11/26/23 03:54
Monocytes % 9.5 % (1.7-9.3) H 11/26/23 03:54
Eosinophils % 0.6 % (0-6) 11/26/23 03:54
Basophils % 0.4 % (0-2) 11/26/23 03:54
Ur Squamous Epith Cells 3-5 /LPF (Few) 11/23/23 19:59
Microbiology Results
Micro:
11/23/23 19:59 Urine Culture - Final
Urine Staphylococcus epidermidis
11/23/23 18:59 Blood Culture - Preliminary
Blood/Venous No Growth in 48 hours- Final report to follow
11/23/23 18:59 Blood Culture - Preliminary
Blood/Venous No Growth in 48 hours- Final report to follow
11/23/23 19:59 Influenza Types A & B (SANDEEP) - Final
Nasal Swab Negative for Influenza A & B, NAAT
Negative results must be combined with clinical observations
and patient history.
Nucleic Acid Amplification test (NAAT)performed on the
[employer] platform.
Urine Culture Final 11/26/23-1145
CC: 60,000 CFU/ML Staphylococcus epidermidis
Organism 1 Staphylococcus epidermidis
1. Staphylococcus epidermidis
M.I.C. RX
--------- ---
Amoxicillin/Potas. Clavulanate <=4/2 S
Ampicillin <=2 R
Gentamicin <=4 S
Levofloxacin <=1 S
Oxacillin <=0.25 S
Nitrofurantoin-Urine Only <=32 S
Tetracycline <=4 S
Trimethoprim/Sulfamethoxazole <=0.5/9.5 S
Vancomycin 2 S
Assessment / Plan
Prostatitis with possible pyelonephritis
CKD
BPH
Constipation
- blood cultures x2 no growth to date
- urine culture 60K CONS - agree with treatment
- isolate sensitive to quinolones
- last a1c 7.1
- qtc acceptable
- on bowel regimen for constipation
- on flomax
- continue to hold oral hypoglycemics (metformin, farxiga) while on ciprofloxacin - reviewed with patient; with relatively well controlled a1c he can likely hold the hypoglycemics without issue, additionally he will avoid sugary foods
- agree with plan for 2 weeks of ciprofloxacin, follow up with urology; stable for dc from ID perspective
Care Review
Plan reviewed with: Physician (Dr Eller - drug interactions)
[2023-11-26 12:35] LABS: Glucose - Point of Care 240 mg/dl (70-99)
[2023-11-26] MEDS: NOVOLOG FLEXPEN-LOW RESISTANCE 2 UNITS SC (12:45)
--- NOTE | 2023-11-26 13:29 | W.PN.HOSP.TC ---
Today's Communication/Plan
-
Discharge today
Assessment / Plan
Assessment / Plan
Physical Exam
General: Not in acute distress
HEENT: Normocephalic
Respiratory: Clear to Auscultation Bilaterally
Cardiac: S1/S2 and RRR
GI: Soft, Non Tender, Non Distended, Normal Bowel Sounds
Musculoskeletal: No Cyanosis and No Edema
Skin: Warm and Dry
Neuro: AAO x 3, Nonfocal/grossly intact, Cranial Nerves Intact and No Sensory Deficits
Psych: Calm

CT Abd/pelvis Wo Iv Cont, as per radiologist's report
IMPRESSION:
1. Severely enlarged prostate gland with mild surrounding fat stranding suggesting benign prostatic hyperplasia (BPH) and acute prostatitis.
2. Mild diffuse urinary bladder wall thickening which could be secondary to acute cystitis or chronic urinary bladder outlet obstruction.
3. Mild to moderate chronic bilateral renal disease and small hemorrhagic cysts in both kidneys. Moderate perinephric fat stranding around the kidneys which could be secondary to chronic renal disease or acute pyelonephritis. No CT evidence for
ureteral calculus or hydroureteronephrosis.
4. Moderate amount of fecal material throughout the colon suggesting constipation.
5. Small hiatal hernia.
6. 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
Chest X-ray (as per radiologist's report)
IMPRESSION:
1. Mildly decreased bilateral lung volumes.
2. Mild scarring or subsegmental atelectasis in the left lower lobe.
3. No radiographic evidence for pneumonia, pleural effusion, or acute pulmonary edema.

Assessment/Plan
#Sepsis Secondary to Acute prostatitis and Possible Pyelonephritis
#Severely Enlarged prostate
#Fever
#Leukocytosis
-CT Abdomen Pelvis results as above
-Status post Vancomycin, Zosyn and Rocephin
-Now on Ciprofloxacin for acute prostatitis and possible pyelonephritis - continue Ciprofloxacin 500 mg PO Q12H for 2 week course of oral therapy
-Given that patient is on Ciprofloxacin which can cause blood glucose disturbances, consulted with Mary Vasquez (Diabetes Nurse Practitioner) and Dr. Shafer (Infectious Disease)-- we all agreed that holding patient's Metformin, continuing
patient's Glimepiride at a reduced dose and continuing Farxiga was okay going forward
-Urine culture growing 60k cfu CoNS bacteria
-Follow blood cultures -- no growth to date
-Urology consulted, recommendations appreciated
-Continue Flomax
-Infectious Disease consulted, recommendations appreciated
#CALEB Likely Secondary Obstruction with Severely Enlarged Prostate, and sepsis
-Follow BMP - call on Wednesday11/29/23 to get a follow up with urologist Claus Washington to talk about his stricture/ prostate
-Follow-up with nephrology given elevated creatinine
-Follow-up with PCP to recheck your creatinine levels/renal function
-Hold metformin 1000 mg twice daily
#Constipation
-Ordered bowel regimen
-Continue bowel regimen on discharge
#Type 2 Diabetes Mellitus
-Continue reduced dose Glimepiride at 1 mg daily
-Continue Farxiga
-Hold Metformin
#HTN�benign
BP 159/88
-Continue Coreg 3.125 mg twice daily, Norvasc 10 mg daily
2D echo 06/29/2023: EF 65 to 70% no wall abnormalities. Mild MR, mild TR
#HLD
-Continue Lipitor 10 mg daily
DVT prophylaxis
Subcu Lovenox
Full code
More than 30 minutes spent in discharge including
Final examination of the patient
Summarizing hospital stay
Instructions for continuing care to all relevant caregivers
Preparation of discharge records, prescriptions, and referral forms
Total time spent (in minutes): 38
Anticipated Discharge: Today
Subjective/Interval History
-
Date of Service: November 26, 2023
Patient was seen and examined. He denied any new fever, abdominal pain or problems with urination. He has had bowel movements within the past 24 hours.
Objective Data
-
Labs:
Laboratory Results
11/26/23
03:54
WBC 18.1 H
Hgb 12.5 L
Hct 36.4 L
Plt Count 268
Sodium 136
Potassium 4.4
Chloride 104
Carbon Dioxide 23
BUN 24 H
Creatinine 1.6 H
Glucose 171 H
Calcium 9.0
Total Bilirubin 0.7
AST 42
ALT 47
Alkaline Phosphatase 138 H
Vital Signs:
Vital Signs
Temp Pulse Resp BP Pulse Ox
98.5 F 72 22 154/68 93
11/26/23 11:25 11/26/23 11:25 11/26/23 11:25 11/26/23 11:25 11/26/23 11:25
I&O
11/25/23 11/26/23 11/27/23
06:59 06:59 06:59
Intake Total 4580 / 4580 3025 / 3025
Output Total 2250 / 2250 600 / 600
Balance 2330 / 2330 2425 / 2425
--- NOTE | 2023-11-26 13:56 | PN.DE.MGMTRT ---
Insulin Management
- -
11/26/2023 Diabetes Management Consult
Patient admitted 11/22 with fever, chills, elevated BP and HR, prostatitis with possible pyelonephritis. PMH HTN, type 2 diabetes. Prior to admission was taking farxiga 10 mg daily, glimepiride 2 mg daily and metformin 1000 BID. A1C 7.1%, cr 1.6,
eGFR 46.35.
Patient has received corrective insulin only, glucose range 11/23, , and today 141 to 290.
Patient is on Ciprofloxacin 400 mg Q 12 hours. I did discuss resuming Farxiga 10 mg and glimepiride 1 mg daily.
Will resume Farxiga 10 mg now and daily with reduced dose of glimepiride 1 mg daily. Will hold metformin with elevated cr.
Will discuss with patient and patient nurse.
Diabetes History
- -
Type of Diabetes: 2
Pre-Admission Diabetes Regimen
11/26/23
03:54
Creatinine 1.6 H
Lab Results
Hemoglobin A1c 7.1 % (4.0-5.6) H 11/24/23 07:54
Insulin Pump Settings
IP Diabetes Regimen
11/25/23 11/25/23 11/26/23
16:42 21:22 03:54
Glucose 171 H
POC Glucose 290 H 243 H
11/26/23 11/26/23
07:57 12:33
Glucose
POC Glucose 183 H 240 H
Patient Education
[2023-11-26] MEDS: AMARYL 1 MG PO (14:46)
[2023-11-26] MEDS: FARXIGA 10 MG PO (14:46)
--- NOTE | 2023-11-26 15:44 | W.DS.TRANS ---
DC Summary - Registered Nurse Practitioner
-
Discharge Instructions:
Discharge Diagnosis/Procedures #Sepsis Secondary to Acute prostatitis and
Possible Pyelonephritis
#Leukocytosis
#Severely Enlarged prostate
#Fever
#Leukocytosis
#Acute Kidney Injury Likely Secondary
Obstruction with Severely Enlarged Prostate, and
sepsis
#Constipation
#Type 2 Diabetes Mellitus
#Hypertension
#Hyperlipidemia
CT Abd/pelvis Wo Iv Cont, as per radiologist's
report
IMPRESSION:
1. Severely enlarged prostate gland with mild
surrounding fat stranding suggesting benign
prostatic hyperplasia (BPH) and acute
prostatitis.
2. Mild diffuse urinary bladder wall
thickening which could be secondary to acute
cystitis or chronic urinary bladder outlet
obstruction.
3. Mild to moderate chronic bilateral renal
disease and small hemorrhagic cysts in both
kidneys. Moderate perinephric fat stranding
around the kidneys which could be secondary to
chronic renal disease or acute pyelonephritis.
No CT evidence for ureteral calculus or
hydroureteronephrosis.
4. Moderate amount of fecal material
throughout the colon suggesting constipation.
5. Small hiatal hernia.
6. Severe discogenic degenerative disease at
L5/S1.
Chest X-ray (as per radiologist's report)
IMPRESSION:
1. Mildly decreased bilateral lung volumes.
2. Mild scarring or subsegmental atelectasis
in the left lower lobe.
3. No radiographic evidence for pneumonia,
pleural effusion, or acute pulmonary edema.
Diet Diabetic, Carb Controlled,Low Sodium,Low Fat,Low
Cholesterol
Activity As tolerated
Blood Work Recheck CBC and BMP with your outpatient
provider's office by Wednesday, November 29, 2023
Instructions: Ciprofloxacin (Systemic)
Tamsulosin
Stand-Alone Forms:
Changes to Home Medications: Yes
Discharge Medications:
DC Medications w/original date entered in [facility]
amlodipine 10 mg tablet (Norvasc) 10 mg PO DAILY Blood Pressure 11/23/23
aspirin 81 mg tablet,delayed release 81 mg PO DAILY Blood Clot Prevention/Tx 11/23/23
atorvastatin 10 mg tablet (Lipitor) 10 mg PO DAILY High Cholesterol 11/23/23
carvedilol 3.125 mg tablet (Coreg) 3.125 mg PO BID Blood Pressure 11/23/23
dapagliflozin propanediol 10 mg tablet (Farxiga) 10 mg PO DAILY Diabetes 11/23/23
acetaminophen 500 mg tablet (Tylenol Extra Strength) 1,000 mg (2 x 500 mg) PO TIDPRN PRN mild pain #0 tabs 11/26/23
ciprofloxacin HCl 500 mg tablet 500 mg PO Q12H 14 days #28 tabs 11/26/23
glimepiride 1 mg tablet 1 mg PO DAILY #30 tabs 11/26/23
polyethylene glycol 3350 17 gram oral powder packet (HealthyLax) 17 g PO DAILY #30 ea 11/26/23
sennosides 8.6 mg-docusate sodium 50 mg tablet (Stool Softener-Laxative) 1 tab PO BID #30 tabs 11/26/23
tamsulosin 0.4 mg capsule 0.8 mg (2 x 0.4 mg) PO DAILY #60 caps 11/26/23
Home Medication Changes
Ciprofloxacin, Tamsulosin, HealthyLax and Sennosides-Docusate.
Glimepiride dose was decreased from 2 mg daily to 1 mg daily.
Acetaminophen frequency decreased.
Metformin stopped given worsened renal function.
Pending Results: Yes
Additional Pending Results:
Final results of blood cultures from hospitalization.
Total time spent discharging patient (in min): 38
--- NOTE | 2023-11-26 16:12 | CM ---
Patient seen bedside with , discussed plan for discharge. IMM reviewed, signed, placed in chart. Patient denies any needs upon discharge. CM will continue to follow for all discharge planning needs.
Plan; home no needs.
[2023-11-26 16:24] VITALS: BP 152/77
== END 2023-11-26 17:25 | disposition home or self-care (01) | DRG 872 ==
LOC: 4 EAST ACU 21:57
PROVIDERS: Clinical Nurse Specialist Family Health; Nurse Practitioner; ADMITTING PHYSICIAN Hospitalist; ATTENDING PHYSICIAN Hospitalist; CONSULT PHYSICIAN Urology; EMERGENCY PHYSICIAN Emergency Medicine; FAMILY PHYSICIAN Internal Medicine; OTHER PHYSICIAN Student in an Organized Health Care Education/Training Program
DX: A41.9 Sepsis, unspecified organism (principal); N41.0 Acute prostatitis; N39.0 Urinary tract infection, site not specified; N17.9 Acute kidney failure, unspecified; E11.8 Type 2 diabetes mellitus with unspecified complications; E78.5 Hyperlipidemia, unspecified; N18.30 Chronic kidney disease, stage 3 unspecified
CPT/HCPCS: 71046; 74176; 80053; 81003; 81015; 82962; 83036; 84484; 85025; 87040; 87086; 87147; 87186; 87502; 87811; 93005; 96360; 97161; 97166; 99285

== ENCOUNTER → 2024-01-05 08:25 | Outpatient (REF) | payer OTHER, SELFPAY | LOC: HWRAD 08:25 | PROVIDERS: ATTENDING PHYSICIAN Urology; FAMILY PHYSICIAN Internal Medicine | DX: N28.1 Cyst of kidney, acquired (principal) | CPT/HCPCS: 74170; Q9967 ==

== ENCOUNTER → 2025-05-11 09:24 | Outpatient (REF) | payer OTHER, SELFPAY | LOC: REG 09:24 | PROVIDERS: ATTENDING PHYSICIAN Internal Medicine | DX: R07.89 Other chest pain (principal) | CPT/HCPCS: 71046 ==